=== PATIENT | female | born 1990 | race African-American/Black ===

== ENCOUNTER 2020-11-06 11:51 | Emergency (ER) | payer MEDICAID, OTHER ==
[~2020-11-06] VITALS: Ht 170.2 cm; Wt 85.7 kg
[2020-11-06 12:57] VITALS: BP 158/91
== END 2020-11-06 14:02 | disposition home or self-care (01) ==
LOC: ER 11:51
DX: U07.1 COVID-19 (principal)
CPT/HCPCS: 36415; 87426